=== PATIENT | female | born 1995 | race Caucasian/White ===

== ENCOUNTER → 2017-08-17 12:31 | Outpatient (CLI) | payer BC, SELFPAY ==
--- NOTE | 2017-08-17 12:41 | US_ITS ---
US transvaginal HISTORY: Pelvic pressure ITS.REASON: URINARY FREQUENCY, MICRO HEMATURIA ORDERING PHYSICIAN: Tristen Forrseter MD PATIENT AGE: 22 years COMPARISON: None FINDINGS: UTERUS: The uterus is 7.6 x 4 x 4.8 cm with a combined and medial thickness of 14 mm. The uterus is retroverted. No obvious uterine mass. The right ovary is 3.5 x 2.7 cm and contains multiple small follicles as well as a 16 x 13 mm cyst. The left ovary is 3 x 1.3 cm and contains multiple small follicles. Small amount fluid is present in the cul-de-sac. IMPRESSION: 1. Thickened endometrium in a retroverted uterus. 2. 16 mm right ovarian cyst with a small amount fluid in the cul-de-sac
== END ==
PROVIDERS: Family Provider Family Medicine; PCP Family Medicine; Visit Provider Family Medicine
DX: R35.0 Frequency of micturition (principal); R31.29 Other microscopic hematuria
CPT/HCPCS: 76830

== ENCOUNTER → 2018-07-20 13:24 | Outpatient (CLI) | payer BC, SELFPAY ==
[2018-07-20 15:13] LABS: HCG,Quantitative 0 mIU/mL
== END ==
PROVIDERS: Visit Provider Urology
DX: R11.0 Nausea (principal)
CPT/HCPCS: 36415; 84702

== ENCOUNTER → 2018-09-12 15:58 | Outpatient (CLI) | payer SELFPAY ==
[2018-09-12 15:59] LABS: Microscopic, Urine URINE MICROSCOPIC (MICROSCOPIC)
[2018-09-12 16:52] LABS: Appearance,Urine SL CLOUDY (Clear); Bilirubin,Urine Negative (Negative); Blood, Urine 1+ (Negative); Color,Urine YELLOW (Yellow); Glucose,Urine (UA) Negative (Negative); Ketones,Urine Negative (Negative); Leukocyte Esterase,Urine TRACE (Negative); Nitrate,Urine Negative (Negative); Protein,Urine 2+ (Negative); Specific Gravity, Urine >= 1.030 (1.005-1.030); Urobilinogen,Urine 0.2 EU/dl (0.2)
[2018-09-12 18:12] LABS: Bacteria,Urine 4+ /lpf; Calcium Oxalate Crystals,Urine Trace /lpf; RBC,Urine Occasional #/hpf (0-3)
== END ==
PROVIDERS: Visit Provider Urology
DX: M54.9 Dorsalgia, unspecified (principal); R35.0 Frequency of micturition
CPT/HCPCS: 81001; 87086

== ENCOUNTER → 2018-11-02 07:58 | Outpatient (CLI) | payer OTHER, SELFPAY ==
--- NOTE | 2018-11-02 08:05 | US_ITS ---
US thyroid HISTORY: Abnormal thyroid function test ITS.REASON: hypothyoid ORDERING PHYSICIAN: Shahana Pike APRN PATIENT AGE: 23 years Comparison: None FINDINGS: Right lobe: 4.2 x 1.5 x 1.4 cm. There is heterogeneous echogenicity but no distinct nodule Left lobe: 4.1 x 1.4 x 1.6 cm with heterogeneous echogenicity but no distinct nodule. Isthmus: This was is enlarged at 5 mm with heterogeneous echogenicity IMPRESSION: Thyroid gland upper limits of normal in size with heterogeneous echogenicity. No distinct nodule
[2018-11-02 09:04] LABS: Chol/HDL Ratio 4.9 (1-3.5); Cholesterol 339 mg/dL (140-200); HDL Cholesterol 69 mg/dL (29-89); LDL Cholesterol 254 mg/dL (0-130); Triglycerides 79 mg/dL (30-200); VLDL Cholesterol 16 mg/dL (0-40)
[2018-11-02 09:06] LABS: Thyroid Stimulating Hormone 128.41 uIU/ml (0.358-3.740)
== END ==
PROVIDERS: Visit Provider Nurse Practitioner Family
DX: E78.2 Mixed hyperlipidemia (principal); E03.9 Hypothyroidism, unspecified; R79.89 Other specified abnormal findings of blood chemistry
CPT/HCPCS: 36415; 76536; 80061; 84439; 84443

== ENCOUNTER → 2018-11-04 09:42 | Outpatient (CLI) | payer OTHER, SELFPAY ==
[2018-11-04 12:14] LABS: HCG,Quantitative 0 mIU/mL
== END ==
PROVIDERS: Visit Provider Urology
DX: Z32.00 Encounter for pregnancy test, result unknown (principal); R53.83 Other fatigue
CPT/HCPCS: 36415; 84702

== ENCOUNTER → 2018-11-18 11:29 | Outpatient (CLI) | payer OTHER, SELFPAY ==
[2018-11-18 13:01] LABS: HCG,Quantitative 1 mIU/mL
== END ==
PROVIDERS: Visit Provider Urology
DX: Z32.00 Encounter for pregnancy test, result unknown (principal)
CPT/HCPCS: 36415; 84702

== ENCOUNTER → 2018-12-28 08:18 | Outpatient (CLI) | payer OTHER, SELFPAY ==
[2018-12-28 10:01] LABS: Chol/HDL Ratio 3.2 (1-3.5); Cholesterol 162 mg/dL (140-200); Free T4 (Free Thyroxine) 0.83 ng/dl (0.76-1.46); Free Thyroxine Index 2.8 ug/dL (5.93-13.13); HDL Cholesterol 50 mg/dL (29-89); LDL Cholesterol 100 mg/dL (0-130); T4 (Thyroxine) 8.2 ug/dl (4.7-13.3); Thyroid Stimulating Hormone 13.28 uIU/ml (0.358-3.740); Triglycerides 59 mg/dL (30-200); Triiodothryronine (T3) Uptake 34 % (31-39); VLDL Cholesterol 12 mg/dL (0-40)
== END ==
PROVIDERS: Visit Provider Internal Medicine
DX: R79.89 Other specified abnormal findings of blood chemistry (principal)
CPT/HCPCS: 36415; 80061; 84436; 84439; 84443; 84479

== ENCOUNTER → 2019-01-19 12:47 | Outpatient (CLI) | payer OTHER, SELFPAY ==
[2019-01-19 13:44] LABS: HCG Qualitative, Serum Negative (Negative)
== END ==
PROVIDERS: Visit Provider Nurse Practitioner Family
DX: Z34.90 Encounter for supervision of normal pregnancy, unspecified, unspecified trimester (principal)
CPT/HCPCS: 36415; 84703

== ENCOUNTER → 2019-02-16 09:42 | Outpatient (CLI) | payer OTHER, SELFPAY ==
--- NOTE | 2019-02-16 09:47 | XR_ITS ---
PROCEDURE: XR KUB CLINICAL INDICATION: Kidney Stones COMPARISON: CT ABDOMEN PELVIS W CON from 02/02/2019 FINDINGS: Previously noted prominent stone in the right renal pelvis is no longer apparent. There is however ever, a column of fragmented stones in the distal right ureter. This column measures 19 mm on the left and 6 mm. There is a moderate amount of retained colonic feces IMPRESSION: Column of fragmented stones is present in the distal right ureter Dictated by: Fred Sandra MD 02/16/2019 10:19 Signed by: <Electronically signed by Fred Sandra MD in [place]> 02/16/2019 10:19
[2019-02-28 09:11] LABS: Ca oxalate dihydrate 65 % (.); Calcium phosphate 10 % (.)
[2019-02-28 10:32] LABS: Comment Note: (.); Specimen Type Comment: (.)
== END ==
PROVIDERS: PCP Family Medicine; Visit Provider Urology
DX: N20.1 Calculus of ureter (principal); N20.0 Calculus of kidney
CPT/HCPCS: 74018; 82370

== ENCOUNTER → 2019-02-23 08:26 | Outpatient (CLI) | payer OTHER, SELFPAY ==
--- NOTE | 2019-02-23 08:29 | XR_ITS ---
PROCEDURE: XR KUB CLINICAL INDICATION: Kidney Stones Follow-up kidney stones, ureteral stones COMPARISON: CT ABDOMEN PELVIS W CON from 02/02/2019 XR KUB from 02/16/2019 FINDINGS: There is a mild amount of retained colonic feces. Previously noted column of fragmented stones in the right distal ureter is no longer apparent. IMPRESSION: Negative KUB Dictated by: Fred Sandra MD 02/23/2019 08:49 Electronically signed by Fred Sandra MD in [place] 02/23/2019 08:49
== END ==
PROVIDERS: PCP Family Medicine; Visit Provider Urology
DX: N20.1 Calculus of ureter (principal)
CPT/HCPCS: 74018

== ENCOUNTER → 2019-04-14 15:55 | Outpatient (CLI) | payer OTHER, SELFPAY ==
[2019-04-14 17:22] LABS: Free T4 (Free Thyroxine) 1.04 ng/dl (0.76-1.46); Thyroid Stimulating Hormone 1.92 uIU/ml (0.358-3.740)
== END ==
PROVIDERS: Visit Provider Family Medicine
DX: E03.9 Hypothyroidism, unspecified (principal)
CPT/HCPCS: 36415; 84439; 84443

== ENCOUNTER → 2019-04-28 08:26 | Outpatient (CLI) | payer OTHER, SELFPAY ==
[2019-04-28 09:28] LABS: HCG,Quantitative 90 mIU/mL
== END ==
PROVIDERS: Visit Provider Urology
DX: Z34.90 Encounter for supervision of normal pregnancy, unspecified, unspecified trimester (principal)
CPT/HCPCS: 36415; 84702

== ENCOUNTER → 2019-05-08 08:27 | Outpatient (CLI) | payer OTHER, SELFPAY ==
[2019-05-08 10:22] LABS: HCG Qualitative, Serum Positive (Negative)
[2019-05-08 17:36] LABS: HCG,Quantitative 7916 mIU/mL
== END ==
PROVIDERS: Visit Provider Nurse Practitioner Psychiatric/Mental Health
DX: Z34.90 Encounter for supervision of normal pregnancy, unspecified, unspecified trimester (principal)
CPT/HCPCS: 36415; 84702; 84703

== ENCOUNTER → 2019-06-02 10:36 | Outpatient (CLI) | payer OTHER, SELFPAY ==
--- NOTE | 2019-06-02 10:37 | US_ITS ---
PROCEDURE: US OB TRANSVAGINAL CLINICAL INDICATION: US OB Dates The COMPARISON: TRANVAG US transvaginal from 08/17/2017 FINDINGS: An intrauterine gestational sac is present with a pole with a crown-rump length of 2.16 cm correlating to gestational age of 8.86 week. heart tones are present with an FHR of 176 bpm. Yolk sac is noted. IMPRESSION: Live intrauterine gestation at 8 weeks 6 days. Estimated due date by Ultrasound is 01/06/2020 Dictated by: Fred Sandra MD 06/02/2019 14:24 Electronically signed by Fred Sandra MD in [place] 06/02/2019 14:24
== END ==
PROVIDERS: PCP Family Medicine; Visit Provider Obstetrics & Gynecology
DX: O26.841 Uterine size-date discrepancy, first trimester (principal)
CPT/HCPCS: 76817

== ENCOUNTER → 2019-08-16 12:05 | Outpatient (CLI) | payer OTHER, SELFPAY ==
--- NOTE | 2019-08-16 12:08 | US_ITS ---
PROCEDURE: US OB /MATERNAL DETAIL CLINICAL INDICATION: US OB COMPLETE COMPARISON: US OB TRANSVAGINAL from 06/02/2019 FINDINGS: There is a single live fetus present which is in cephalic presentation. heart and body motion noted. The cervix is closed and measures 4 cm. Placenta is posterior and grade 1. Complete survey performed and was unremarkable on the submitted images as in PACS. No discrete anomalies identified on survey imaging by technologist. Active fetus. Three-vessel cord with satisfactory umbilical cord insertion. 4- chamber heart noted. Survey of brain & ventricles Unremarkable. Face and neck survey unremarkable. Diaphragm and chest views unremarkable. Abdomen: There is minimal ectasia both renal collecting systems measuring 5 mm and 4 mm. Stomach noted and satisfactory. Spine: Survey of the spine satisfactory with no anomalies identified nor imaged. Both arms and legs noted. Amniotic Fluid: Adequate. Maternal adnexa: No significant findings. Measurements: Average ultrasound age 19weeks 3days. Gestational Age 19 weeks 4 days Estimated due date by ultrasound age 0701/07/2020. Estimated weight 301g BPD = 19weeks 3days OFD = 19 weeks 6 days HC = 18weeks 6days AC = 19weeks 6days FL = 19weeks 4days Growth Percentile= 46% Heart Rate = 149bpm Cerebellum = 20weeks 3days Humerus = 19weeks 4days HC/AC is 1.11 CI is 0.78 FL/BPD is 0.69 FL/AC is 0.21 IMPRESSION: There is a single live fetus which is in cephalic presentation with an average ultrasound age of 19 weeks and 3 days. There is mild pyelectasis of questionable clinical significance. Follow-up is suggested. Study is otherwise unremarkable. Please see above for detail Dictated by: Fred Sandra MD 08/16/2019 17:30 Electronically signed by Fred Sandra MD in [place] 08/16/2019 17:30
== END ==
PROVIDERS: PCP Family Medicine; Visit Provider Obstetrics & Gynecology
DX: Z36.0 Encounter for antenatal screening for chromosomal anomalies (principal)
CPT/HCPCS: 76811

== ENCOUNTER → 2019-10-13 08:23 | Outpatient (CLI) | payer OTHER, SELFPAY ==
[2019-10-13 08:48] LABS: Basophils % 0.4 % (0.1-2.0); Eosinophils # 0.1 K/mm3 (0.0-0.4); Eosinophils % 1.5 % (0.1-12.0); Hemoglobin 10.2 g/dL (12.2-16.2); Lymphocytes # 2.4 K/mm3 (0.7-4.5); Lymphocytes % 26.1 % (10-50); Mean Corpuscular Hemoglobin 26.8 pg (27.0-31.2); Mean Corpuscular Volume 81.2 fl (81-99); Mean Platelet Volume 7.2 fl (7.4-10.4); Monocytes # 0.5 K/mm3 (0.1-1.0); Neutrophils # 6.2 K/mm3 (1.8-7.8); Neutrophils % 66.9 % (37.0-80.0); Platelet Count 282 K/mm3 (142-424); Red Blood Count 3.82 M/mm3 (4.20-5.40); Red Cell Distribution Width 13.1 % (11.5-17.5); White Blood Count 9.3 K/mm3 (4.8-10.8)
[2019-10-13 08:57] LABS: Glucose,Fasting 86 mg/dl (74-100)
[2019-10-13 10:25] LABS: Glucose 1 Hour 106 mg/dL (74-100)
[2019-10-13 10:55] LABS: Thyroid Stimulating Hormone 3.43 uIU/mL (0.465-4.68)
[2019-10-14 11:18] LABS: Hepatitis B Surface Antigen Negative (Negative); Hepatitis C Antibody <0.1 s/co ratio (0.0-0.9)
== END ==
PROVIDERS: Visit Provider Obstetrics & Gynecology
DX: Z34.90 Encounter for supervision of normal pregnancy, unspecified, unspecified trimester (principal); R09.89 Other specified symptoms and signs involving the circulatory and respiratory systems
CPT/HCPCS: 36415; 82951; 84443; 85025; 87340; 87380

== ENCOUNTER → 2019-10-16 14:35 | Outpatient (CLI) | payer OTHER, SELFPAY ==
--- NOTE | 2019-10-16 14:35 | US_ITS ---
PROCEDURE: US OB FOLLOW UP CLINICAL INDICATION: pyelectasis Follow-up pyelectasis COMPARISON: US OB /MATERNAL DETAIL from 08/16/2019 FINDINGS: Cervix is closed and measures 4 cm transabdominal. Single live fetus is present with average ultrasound age of 28 weeks and 2 days which is in breech presentation. heart and body motion noted. Following parameters are obtained BPD 28 weeks 1 day, OFD 28 weeks 4 days, HC 28 weeks 1 day, AC 28 weeks 1 day, FL 28 weeks 2 days. Heart tones are 134 beats per minute. Estimated weight is 1178 g which is 31 percentile. Bilateralpyelectasis once again noted at 4-5 mm not significantly changed. VANESSA is 11 cm which is a within normal limits. The placenta is posterior in implantation and grade 1.. IMPRESSION: Live IUP at 28 weeks 2 days in breech presentation. All parameters correlate. There remains mild pyelectasis not significantly changed. Amniotic fluid index is normal at 11 cm. Dictated by: Fred Sandra MD 10/16/2019 16:15 Electronically signed by Fred Sandra MD in [place] 10/16/2019 16:15
== END ==
PROVIDERS: PCP Family Medicine; Visit Provider Obstetrics & Gynecology
DX: Q62.0 Congenital hydronephrosis (principal)
CPT/HCPCS: 76816

== ENCOUNTER → 2019-11-30 13:20 | Outpatient (CLI) | payer OTHER, SELFPAY ==
--- NOTE | 2019-11-30 13:20 | US_ITS ---
PROCEDURE: US OB FOLLOW UP CLINICAL INDICATION: f/u pyelectasis COMPARISON: US OB FOLLOW UP from 10/16/2019 FINDINGS: There is a single live intrauterine gestation which is in cephalic presentation. heart body motion within FHR 125 beats per minute. The cervix is closed and measures 5 cm transabdominal. Placenta is posterior grade 1 without evidence of previa. Average ultrasound age is 34 weeks 2 days with an estimated weight of 2395 g which is 33 percentile. BPD 34 weeks 0 days, OFD 35 weeks 0 days, HC 34 weeks 1 day, AC 34 weeks 3 days, FL 34 weeks 3 days. VANESSA is normal at 13 cm. There remains mild right renal pyelectasis with the renal pelvis measuring 9 mm. The left kidney is not well demonstrated but there does not appear to be in the dilatation of the left renal collecting system. The fetus urinary bladder is slightly prominent. IMPRESSION: Right-sided pyelectasis at 9 mm. Follow-up recommended Live IUP at 34 weeks 2 days with an estimated weight of 2395 g which is 33rd percentile Dictated by: Fred Sandra MD 11/30/2019 16:50 Electronically signed by Fred Sandra MD in [place] 11/30/2019 16:50
== END ==
PROVIDERS: PCP Family Medicine; Visit Provider Obstetrics & Gynecology
DX: Z34.90 Encounter for supervision of normal pregnancy, unspecified, unspecified trimester (principal)
CPT/HCPCS: 76816

== ENCOUNTER → 2019-12-11 16:34 | Outpatient (CLI) | payer OTHER, SELFPAY | PROVIDERS: Visit Provider Obstetrics & Gynecology | DX: Z34.90 Encounter for supervision of normal pregnancy, unspecified, unspecified trimester (principal) | CPT/HCPCS: 86403 ==

== ENCOUNTER 2020-01-01 05:08 | Inpatient (IN) | payer OTHER, SELFPAY ==
[2020-01-01 05:10] VITALS: BMI 35.9
[2020-01-01 05:40] LABS: Microscopic, Urine URINE MICROSCOPIC (MICROSCOPIC)
[2020-01-01 06:07] LABS: Appearance,Urine CLEAR (Clear); Bilirubin,Urine Negative (Negative); Blood, Urine Negative (Negative); Color,Urine YELLOW (Yellow); Glucose,Urine (UA) Negative (Negative); Ketones,Urine Negative (Negative); Leukocyte Esterase,Urine 2+ (Negative); Nitrate,Urine Negative (Negative); Protein,Urine Negative (Negative); Urobilinogen,Urine 0.2 EU/dl (0.2)
[2020-01-01 06:08] LABS: Basophils % 0.4 % (0.1-2.0); Eosinophils # 0.1 K/mm3 (0.0-0.4); Eosinophils % 0.6 % (0.1-12.0); Lymphocytes # 3.3 K/mm3 (0.7-4.5); Lymphocytes % 28.2 % (10-50); Mean Corpuscular HGB Conc 32.6 g/dL (31.8-35.4); Mean Corpuscular Hemoglobin 23.2 pg (27.0-31.2); Mean Corpuscular Volume 71.2 fl (81-99); Mean Platelet Volume 7.9 fl (7.4-10.4); Monocytes # 0.6 K/mm3 (0.1-1.0); Monocytes % 5.1 % (1.7-9.3); Neutrophils # 7.7 K/mm3 (1.8-7.8); Neutrophils % 65.7 % (37.0-80.0); Platelet Count 287 K/mm3 (142-424); Red Blood Count 3.85 M/mm3 (4.20-5.40); Red Cell Distribution Width 14.6 % (11.5-17.5); White Blood Count 11.8 K/mm3 (4.8-10.8)
[2020-01-01 06:12] LABS: Hematocrit 27.4 % (37.0-47.0); Hemoglobin 8.9 g/dL (12.2-16.2)
[2020-01-01 06:21] LABS: Barbiturates Screen,Urine Negative ng/ml (<200)
[2020-01-01 06:22] LABS: Benzodiazepines Screen,Urine Negative ng/ml (<200)
[2020-01-01 06:23] LABS: Amphetamine/Metha Screen,Urine Negative ng/ml (<1000); Methadone Screen,Urine Negative ng/ml (<300)
[2020-01-01 06:24] LABS: Cannabinoid Screen,Urine Negative ng/ml (<50); Cocaine Screen,Urine Negative ng/ml (<300)
[2020-01-01 06:26] LABS: Opiate Screen,Urine Negative ng/ml (<300); Phencyclidine Screen,Urine Negative ng/ml (<25)
[2020-01-01 06:36] LABS: Amorphous Sediment,Urine Trace /lpf; Bacteria,Urine 2+ /lpf
[2020-01-01 06:56] LABS: Coronavirus 19 IgG Antibody Negative (Negative); Coronavirus 19 IgM Antibody Negative (Negative)
[2020-01-01 07:13] VITALS: BP 148/95; PULSE 101; RESP 18; TEMP 36.6; O2SAT 98; BMI 35.9
[2020-01-01 07:24] VITALS: BP 129/76; PULSE 100; RESP 18; TEMP 36.8; O2SAT 100
--- NOTE | 2020-01-01 09:54 | HMH.PHAINT ---
MED REC-PATIENT INDICATED SHE CAN'T REMEMBER TO TAKE HER ZOLOFT. HAS NOT HAD IN AT LEAST A MONTH.
--- NOTE | 2020-01-01 10:55 | HMH.LABNOT ---
Labor Note - Subjective: Date: 01/01/20 Time: 10:55 Comment:: Irregular contractions NST reassuring AROM with clear fluid IUPC placed without difficulty or complication - Objective: NST:: Reactive Cervical Dilation:: 3 Effacement:: 70% Station: -1 Membranes: artificially ruptured - Fetus: Monitoring?: Yes monitoring type:: External - Assessment: Patient Problems: All Active Problems 39 weeks gestation of (Acute) Anemia affecting (Acute) Congenital hydronephrosis (Acute) pyelectasis (Acute) Depression (Acute) Hypothyroidism (Acute) (Acute) Right ureteral calculus (Acute) - Plan: Comment:: Continue pitocin augmentation Continuous monitoring Anticipate
[2020-01-01 12:10] VITALS: BP 130/84; PULSE 93; RESP 18; TEMP 36.5; O2SAT 99
--- NOTE | 2020-01-01 13:27 | P.PN_ITS ---
[facility] Anesthesia Checklist - Patient Identification Patient Identification: Arm Band, Verbal (Name & ) - Structural Data Admitted From: Inpatient Planned Operative Procedure/s: labor epidural Consent for Planned Operative Procedure(s) Verified: Yes Verified Documents: History and Physical - NPO Status Verified Time NPO: 00:00 - Chart Verification Results Verified: CBC, BMP - Additional verifications Patient : Yes Anesthesia Reactions: No Hx Blood Transfusions: No Blood Transfusion Reaction: No Cephalosporin Allergy: No Previous Colonoscopy: No - Cardiovascular Assessment Heart Sounds: S1 & S2 Pulse Strength: Baseline Pulse Rhythm: Regular Peripheral Edema: Yes - Airway Assessment C-Spine Mobility Assessed: No TMJ Mobility Assessed: No Dentition: Good Dentition - Neurological Assessment Level of Consciousness: Awake, Alert, Appropriate Hx Seizures: No Numbness or tingling in extremities: No - Anesthesia Plan Anesthesia Risk discussed: Yes Anesthesia Plan: Verified ASA Class: II Anesthesia Type: Epidural [facility] History I have reviewed the patient's past medical history: Yes *Have you ever received a pneumonia vaccine?: No *Have you received a flu vaccine this season?: Yes Anesthesia experience/problems:: none Laterality Cases: Bilateral: Tonsillectomy Other Surgeries: No: Amputation: No Fractures: No - *Social History Smoking Status: Never smoker Alcohol Intake: current Alcohol Intake Frequency:: holidays/special occasions only Substance Use Type: denies use *Occupational Status:: employed *Travel in the last 8 weeks: None Family Hx:: Cancer, Hyperlipidemia, Diabetes, Stroke, Thyroid Disorder Para: 1
--- NOTE | 2020-01-01 16:14 | HMH.DN ---
- Delivery Note Delivery Date:: 01/01/20 Delivery Time:: 15:58 Anesthesia Type: Epidural Was labor medically induced?: Yes Induction method: per pitocin protocol Gestational age (weeks): 39 delivered prior to 39 weeks?: No Gender: Male at 1 minute: 8 at 5 minutes: 9 Delivery Procedure:: Spontaneous vaginal delivery of liveborn male infant over intact perineum. Delivery uncomplicated Nuchal cord x1 reduced on perineum; no shoulder dystocia with delivery Infant placed in JOSE with mother immediately after umbilical cord clamped/cut, with standard nursing assessment performed Infant Apgars: 8 & 9 Placenta spontaneously expressed and examined; noted to be complete/intact. Vulva, vagina, and cervix inspected; no lacerations present EBL: 300 cc All sponge/needle/instrument counts correct at conclusion of procedure Disposition: Mom/baby stable to recovery in LDRP Placental Delivery Description: Spontaneous
[2020-01-01 16:21] VITALS: BP 136/61; PULSE 93; RESP 16; TEMP 36.4
[2020-01-01 20:52] VITALS: BP 138/78; PULSE 90; RESP 18; TEMP 36.6; O2SAT 99
[2020-01-02] VITALS (21 sets, daily range): BP systolic 122–135; BP diastolic 72–90; PULSE 77–98; RESP 16–18; TEMP 36.3–36.8; O2SAT 95–99
[2020-01-02 06:49] LABS: Hematocrit 21.9 % (37.0-47.0)
[2020-01-02 14:17] LABS: Hematocrit 29.2 % (37.0-47.0)
--- NOTE | 2020-01-02 17:35 | HMH.ACPN2 ---
Internal Medicine - PN: Subj *Date: 01/02/20 *Time: 10:35 Interval history: PPD #1 No unusual complaints Yedxr-sy-locwgee anemia Admitting Hgb 8.9 and PPD #1 Hgb 7.0 Lochia has been appropriate with no excessive bleeding Asymptomatic with anemia Exam Vital signs and Labs for Last 24 Hours: Temp Pulse Resp BP Pulse Ox 97.4 F L 84 16 126/72 97 01/02/20 16:30 01/02/20 16:30 01/02/20 16:30 01/02/20 16:30 01/02/20 16:30 Laboratory Results - last 24 hr 01/01/20 05:30: Blood Type A Positive, Antibody Screen Negative, Crossmatch (AHG) See Detail 01/02/20 06:13: Hgb 7.0 L*, Hct 21.9 L* 01/02/20 07:50: Blood Type Confirm A Positive 01/02/20 13:41: Hgb 10.0 L D, Hct 29.2 L I & O for Last 24 hours: Intake & Output 12/31/19 01/01/20 01/02/20 01/03/20 11:59 11:59 11:59 11:59 Intake Total 0 / 0 0 / 0 Balance 0 / 0 0 / 0 Weight 190 lb Microbiology Reports for the Last 24 Hours: Microbiology 01/01/20 05:15 Urine,Clean Catch Urine Culture - Preliminary NO GROWTH AFTER 24 HOURS Narrative: CONSTITUTIONAL: no acute distress HEENT: mucous membranes moist PULMONARY: breathing unlabored without audible wheezes CV: no tachycardia or visible JVD; normal LE peripheral pulses ABD: soft, NT/ND, no guarding : fundus firm at/below umbilicus SKIN: no visible rash or lesions EXT: 1+ edema LEs NEURO: alert/oriented, no altered mental status PSYCH: appropriate mood and demeanor without visible anxiety/depression Assessment and Plan (1) Acute blood loss anemia Current visit: Yes Status: Acute Category: Medical Code(s): D62 - Acute posthemorrhagic anemia (2) Anemia affecting Current visit: Yes Status: Acute Category: Medical Code(s): O99.019 - Anemia complicating , unspecified trimester - Assessment and plan all Dx Assessment and Plan for all problems:: Transfusion 2 units red cells post-transfusion hgb anticipate discharge home tomorrow
[2020-01-03 04:24] VITALS: BP 135/82; PULSE 76; RESP 18; TEMP 37.2; O2SAT 96
[2020-01-03 07:11] LABS: Hematocrit 29.1 % (37.0-47.0); Hemoglobin 9.8 g/dL (12.2-16.2)
[2020-01-03 09:20] VITALS: BP 138/88; PULSE 87; RESP 18; TEMP 36.5; O2SAT 97
--- NOTE | 2020-01-03 11:05 | P.DS_ITS ---
General - General Admission date:: 01/01/20 Discharge date: 01/03/20 Hospital Course Hospital Course: IOL at 39 wks Normal without complication Chronic anemia with small EBL during delivery, but Hgb PPD #1 7.0 Transfused 2 units of packed red cells with post-transfusion hgb 10.0 Discharged home on PPD #2 in stable condition Rhogam Administration: Not Indicated Objective Vital signs: Temp Pulse Resp BP Pulse Ox 97.7 F 87 18 138/88 97 01/03/20 09:20 01/03/20 09:20 01/03/20 09:20 01/03/20 09:20 01/03/20 09:20 Narrative: CONSTITUTIONAL: no acute distress HEENT: mucous membranes moist PULMONARY: breathing unlabored without audible wheezes CV: no tachycardia or visible JVD; normal LE peripheral pulses ABD: soft, NT/ND, no guarding : fundus firm at/below umbilicus SKIN: no visible rash or lesions EXT: 1+ edema LEs NEURO: alert/oriented, no altered mental status PSYCH: appropriate mood and demeanor without visible anxiety/depression Results Labs on day of discharge: Labs from last 24 hours 01/03/20 01/02/20 01/01/20 06:50 13:41 05:30 Hgb 9.8 L 10.0 L D Hct 29.1 L 29.2 L Crossmatch (AHG) See Detail DS: Diagnosis - Discharge Diagnosis (1) Acute blood loss anemia Status: Acute (2) Anemia affecting Status: Acute (3) Normal vaginal delivery Status: Acute Discharge Plan - Patient Discharge Instructions ACTIVITY: Continue current activity DIET: regular diet Additional Instructions: no heavy lifting, no strenuous activity, nothing in the vagina for 6 weeks. Patient Instructions: Depression, Hemorrhage, DI for Labor and Delivery, Vaginal , DI for Pre-eclampsia, Preventing the Spread of Coronavirus Discharge Instructions - Follow up Plan Follow up with: Lis Hayes MD [Staff Physician] - Disposition: Home, Self-Nursing Home Medications: Home Medications Medication Instructions Recorded Confirmed Type Levothyroxine Sodium 100 mcg PO DAILY 02/02/19 01/01/20 History [Levothyroxine 100mcg (0.1MG) Tab] prenat.vits,rita,mfa-audj-drcqt 1 tab PO DAILY 06/07/19 01/01/20 History Sertraline HCl [Zoloft] 50 mg PO DAILY 01/01/20 01/01/20 History Prescriptions/Medication Reconciliation: New Acetaminophen [Acetaminophen 325mg tab] 650 mg PO Q4HP PRN tablet PRN Reason: Mild Pain Ibuprofen [Motrin 400mg tablet] 800 mg PO Q6HP PRN tablet PRN Reason: Mild To Moderate Pain Sertraline HCl [Zoloft 50mg tablet] 50 mg PO DAILY tablet Levothyroxine Sodium [Synthroid 100mcg (0.1mg) tablet] 100 mcg PO DAILY tablet Continued prenat.vits,rita,qdg-axnu-vbcnj 1 tab PO DAILY Levothyroxine Sodium [Levothyroxine 100mcg (0.1MG) Tab] 100 mcg PO DAILY Sertraline HCl [Zoloft] 50 mg PO DAILY - Problem Reconciliation Problems Reviewed?: Yes
== END 2020-01-03 12:00 | disposition home or self-care (01) | DRG 807 ==
PROVIDERS: Admitting Provider Obstetrics & Gynecology; PCP Family Medicine; Visit Provider Obstetrics & Gynecology
DX: O69.81X0 Labor and delivery complicated by cord around neck, without compression, not applicable or unspecified (principal); Z37.0 Single live birth; Z3A.39 39 weeks gestation of pregnancy; O99.03 Anemia complicating the puerperium
CPT/HCPCS: 59409; 36415; 59025; 80305; 81001; 85014; 85018; 85025; 86328; 86850; 87086; 94761; C1758; P9016

== ENCOUNTER → 2020-04-22 08:40 | Outpatient (CLI) | payer OTHER, SELFPAY ==
[2020-04-22 09:29] LABS: HCG,Quantitative < 2 mIU/ml (0-5.42)
== END ==
PROVIDERS: Visit Provider Obstetrics & Gynecology
DX: Z30.9 Encounter for contraceptive management, unspecified (principal)
CPT/HCPCS: 36415; 84702

== ENCOUNTER → 2020-07-26 07:53 | Outpatient (CLI) | payer OTHER, SELFPAY ==
--- NOTE | 2020-07-26 07:53 | US_ITS ---
PROCEDURE: US TRANSVAGINAL CLINICAL INDICATION: US- IUD placement COMPARISON: US US OB TRANSVAGINAL from 06/02/2019 FINDINGS: UTERUS: 7cm x 6cmx 4cm with a combined endometrial thickness of 3.9mm LEFT OVARY: 7kto7pej2.5cm with a volume of 6.7ml. RIGHT OVARY: [id number] with a volume of 7.2ml. The uterus is retroverted. There is an IUD in place in satisfactory position. Small bilateral ovarian follicles are noted. No cul-de-sac fluid. No dominant adnexal mass. IMPRESSION: Retroverted uterus with IUD in place. Dictated by: Fred Sandra MD 07/26/2020 17:12 Fred Sandra MD in [place] 07/26/2020 17:12
== END ==
PROVIDERS: PCP Family Medicine; Visit Provider Obstetrics & Gynecology
DX: Z97.5 Presence of (intrauterine) contraceptive device (principal)
CPT/HCPCS: 76830

== ENCOUNTER → 2020-08-16 15:02 | Outpatient (CLI) | payer OTHER, SELFPAY ==
--- NOTE | 2020-08-16 15:05 | XR_ITS ---
PROCEDURE: XR KNEE RT 4V CLINICAL INDICATION: right knee pain; weightbearing COMPARISON: No exams were available for comparison FINDINGS: No fracture or dislocation. No lytic or blastic change. There is normal mineralization. The joint spaces are well-preserved. No significant degenerative/arthritic changes. No erosive changes evident. Other findings:None. IMPRESSION: No acute findings. Dictated by: Fred Sandra MD 08/16/2020 15:49 Fred Sandra MD in [place] 08/16/2020 15:49
== END ==
PROVIDERS: PCP Internal Medicine Adolescent Medicine; Visit Provider Orthopaedic Surgery
DX: M25.561 Pain in right knee (principal)
CPT/HCPCS: 73564

== ENCOUNTER → 2022-12-21 08:42 | Outpatient (CLI) | payer BC, SELFPAY ==
[2022-12-21 10:09] LABS: HCG,Quantitative < 2 mIU/ml (0-5.42)
== END ==
PROVIDERS: PCP Internal Medicine Adolescent Medicine; Visit Provider Nurse Practitioner Family
DX: N92.6 Irregular menstruation, unspecified (principal)
CPT/HCPCS: 36415; 84702

== ENCOUNTER → 2023-03-24 13:29 | Outpatient (CLI) | payer BC, SELFPAY | LOC: LAB 08-16 13:31 | PROVIDERS: PCP Nurse Practitioner Family; Visit Provider Nurse Practitioner Family | DX: R53.83 Other fatigue; Z83.3 Family history of diabetes mellitus; E66.9 Obesity, unspecified; Z68.34 Body mass index [BMI] 34.0-34.9, adult; Z79.899 Other long term (current) drug therapy ==

== ENCOUNTER 2023-11-08 17:07 | Emergency (ER) | payer BC, SELFPAY ==
[2023-11-08 17:45] VITALS: BP 134/84; PULSE 78; RESP 20; TEMP 36.8; O2SAT 100; BMI 37.8
[2023-11-08 18:19] LABS: UTC Pregnancy Test, Urine Negative (Negative)
--- NOTE | 2023-11-08 18:19 | EXP.UTC ---
Discharge Plan Disposition Patient Disposition: Home, Self-Care Condition: Good Prescriptions Prescriptions: No Action aripiprazole [Abilify] 5 mg tablet 5 mg PO QHS Qty: 30 0RF sertraline 50 mg tablet 50 mg PO DAILY Qty: 30 0RF levothyroxine 100 mcg tablet See Rx Instructions .ROUTE .COMPLEX Qty: 30 5RF Dose Instruction: TAKE ONE TABLET BY MOUTH EVERY DAY Rx Instructions: TAKE ONE TABLET BY MOUTH EVERY DAY bupropion HCl 150 mg tablet extended release 24 hr 150 mg PO DAILY Patient Comments: TAKE 1 TABLET BY MOUTH EACH MORNING Referrals Follow up/Referrals: Bere Mcghee APRN [Primary Care Provider] - See instructions Activity Restrictions/Add. Instructions Additional Instructions/Restrictions: GO home and lay down and sleep off remainder of migraine headache Follow up with your Family Doctor if you continue to have headaches to maybe discuss preventative medications to keep them under control Straight to ER if worse headache of your life Clinical Impressions Clinical Impression: Migraine Qualifiers: Migraine type: unspecified Status migrainosus presence: without status migrainosus Intractability: not intractable Qualified Code(s): G43.909 - Migraine, unspecified, not intractable, without status migrainosus Instructions Patient Instructions: Migraine -- Adult, DI for Migraine Discharge ED Provider: Zoya Hall [facility] General Stated complaint: Migraine Mode of Arrival: Ambulatory Source of Information: Patient Limitations: No Limitations Time Seen by Provider: 11/08/23 18:19 Description of Symptoms (Recalled from Triage Doc. by RN): PATIENT C/O MIGRAINE SINCE YESTERDAY MORNING HEENT Symptoms (Recalled from RN notes): Yes Resp Symptoms (Recalled from RN notes): No Skin Symptoms (Recalled from RN notes): No MS Symptoms (Recalled from RN notes): No Functional Status (Recalled from RN notes): WNL History of Present Illness Provider Complaint: Patient states she has a hx of migraine headaches and she hasnt had one in awhile but yesterday she started with headache and has take OTC pain medications but none has helped so today she came in to get something to help ease the headache Denies worse headache of her life Related Data Home Medications Medication Instructions Recorded Confirmed bupropion HCl 150 mg 24 hr tablet, 150 mg PO DAILY 11/08/23 11/08/23 extended release Previous Rx's Medication Instructions Recorded aripiprazole 5 mg tablet (Abilify) 5 mg PO QHS #30 tabs 08/30/20 sertraline 50 mg tablet 50 mg PO DAILY #30 tabs 08/30/20 levothyroxine 100 mcg tablet See Rx Instructions .Route 01/23/21 .COMPLEX #30 tabs Allergies Allergy/AdvReac Type Severity Reaction Status Date / Time No Known Allergies Allergy Verified 03/10/23 13:14 Worker's Comp Is this a Worker's Comp case?: No PFSH PFS Disclaimer: The information contained in this section may have been updated after the patient was seen, as this information can be updated by other users. 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 (Updated 11/08/23 @ 18:32 by Zoya Hall APRN) Urinary tract infection Thyroid disease Depression Anxiety Migraine Kidney stone Surgical History History of ureteroscopy Hx of tonsillectomy Family History Mother Cancer Cervical Social History Smoking Status: Never smoker alcohol intake: current alcohol intake frequency: holidays/special occasions only substance use type: denies use current occupational status: employed Travel in the last 8 weeks: None number of children: 1 ROS Obtained: Yes All systems reviewed & no additional complaints except as documented and Yes Systems reviewed as appropriate & no additional complaints except as documented Constitutional Constitutional: Reports system reviewed and no additional complaints, except as documented, Reports as per HPI and Reports headache(s) Eyes Eyes: Reports system reviewed and no additional complaints, except as documented, Reports as per HPI, Denies blurry vision, Denies change in vision and Denies loss of vision ENT Ears, Nose, Mouth, and Throat: Reports system reviewed and no additional complaints, except as documented, Reports as per HPI and Reports headache(s) Cardiovascular Cardiovascular: Reports system reviewed and no additional complaints, except as documented and Reports as per HPI Respiratory Respiratory: Reports system reviewed and no additional complaints, except as documented and Reports as per HPI Gastrointestinal Gastrointestingal: Reports system reviewed and no additional complaints, except as documented and as per HPI Musculoskeletal Musculoskeletal: Reports system reviewed and no additional complaints, except as documented and Reports as per HPI Neurologic Neurologic: Reports headache(s) and Denies loss of vision Physical Exam General General appearance: alert and in no apparent distress Eye Eye exam: Present normal appearance, PERRL and EOMI ENT ENT exam: Present normal exam, normal oropharynx and mucous membranes moist Respiratory Respiratory exam: Present normal lung sounds bilaterally; Absent respiratory distress or wheezes Cardiovascular Cardiovascular exam: Present regular rate, normal rhythm and normal heart sounds Neurological Exam Neurological exam: Present alert, oriented X3 and normal gait Medical Decision Making Zoran Inquiry Pt receiving controlled substance: No Zoran was queried for this patient: No Vital Signs: 11/08/23 17:45 Temperature 98.3 F Temperature Source Oral Pulse Rate [Left Brachial] 78 Respiratory Rate 20 Blood Pressure [Left Arm] 134/84 Blood Pressure Mean [Left Arm] 100 Blood Pressure Source [Left Arm] Automatic Cuff Blood Pressure Position [Left Arm] Sitting 02 Sat by Pulse Oximetry 100 Oxygen Delivery Method Room Air Lab Data Lab results reviewed: Yes I reviewed the patient's lab results.
[2023-11-08] MEDS: diphenhydrAMINE 50MG/ML VIAL 25 MG IM (18:37)
[2023-11-08] MEDS: ONDANSETRON 4MG ODT 4 MG SL (18:37)
[2023-11-08] MEDS: KETOROLAC 60MG/2ML VIAL 60 MG IM (18:37)
[2023-11-08 18:38] VITALS: BP 134/84; PULSE 78; RESP 20; TEMP 36.8; O2SAT 100
== END 2023-11-08 18:55 | disposition home or self-care (01) ==
PROVIDERS: Emergency Provider Nurse Practitioner; PCP Nurse Practitioner Family
DX: G43.909 Migraine, unspecified, not intractable, without status migrainosus (principal)
CPT/HCPCS: 81025; 96372; 99204; 99212; G0463

== ENCOUNTER 2024-01-08 15:37 | Emergency (ER) | payer BC, SELFPAY ==
--- NOTE | 2024-01-08 15:43 | XR_ITS ---
PROCEDURE INFORMATION: Exam: XR Right Ankle Exam date and time: 01/08/2024 4:49 PM Age: 28 years old Clinical indication: Pain; Ankle; Right; Additional info: Pain x 1 day, ankle gave out TECHNIQUE: Imaging protocol: Radiologic exam of the right ankle. Views: 3 or more views. COMPARISON: CR XR KNEE RT 4V 08/16/2020 3:30 PM FINDINGS: Bones/joints: No acute fracture or malalignment. Soft tissues: Mild lateral ankle soft tissue swelling. IMPRESSION: 1. No acute osseous findings. 2. Mild lateral ankle soft tissue swelling.
--- NOTE | 2024-01-08 15:44 | XR_ITS ---
PROCEDURE INFORMATION: Exam: XR Right Foot Exam date and time: 01/08/2024 4:53 PM Age: 28 years old Clinical indication: Pain; Ankle; Right; Additional info: Pain x 1 day. Ankle gave out TECHNIQUE: Imaging protocol: Radiologic exam of the right foot. Views: 3 or more views. COMPARISON: CR XR ANKLE RT MIN 3V 01/08/2024 4:49 PM FINDINGS: Bones/joints: No acute fracture or malalignment. Soft tissues: Normal. IMPRESSION: No acute osseous findings.
[2024-01-08 15:50] VITALS: BP 120/85; PULSE 77; RESP 18; TEMP 36.7; O2SAT 98; BMI 37.8
--- NOTE | 2024-01-08 16:03 | ED_ITS ---
Discharge Plan Disposition Patient Disposition: Home, Self-Care Condition: Good Prescriptions Prescriptions: No Action aripiprazole [Abilify] 5 mg tablet 5 mg PO QHS Qty: 30 0RF sertraline 50 mg tablet 50 mg PO DAILY Qty: 30 0RF levothyroxine 100 mcg tablet See Rx Instructions .ROUTE .COMPLEX Qty: 30 5RF Dose Instruction: TAKE ONE TABLET BY MOUTH EVERY DAY Rx Instructions: TAKE ONE TABLET BY MOUTH EVERY DAY bupropion HCl 150 mg tablet extended release 24 hr 150 mg PO DAILY Patient Comments: TAKE 1 TABLET BY MOUTH EACH MORNING Referrals Follow up/Referrals: Bere Mcghee APRN [Primary Care Provider] - See instructions Activity Restrictions/Add. Instructions Additional Instructions/Restrictions: Weightbearing as tolerated rest Ice with cold pack for 20 minutes remove may repeat for comfort every hour Connor wrap for support and swelling no less in the shower. Be sure not too tight but not to lose either Elevate with ankle above your heart as much as possible to help reduce swelling and therefore pain Ibuprofen every 6 hours as needed for pain or inflammation. If needs something more you can take Tylenol every 4 hours as needed as long as her primary care has told he was okayed for you to take both. Follow-up immediately if new or worsening symptoms or no noticeable improvement over the next 3-5 days. call ortho if no improvement Clinical Impressions Clinical Impression: Right ankle sprain Qualifiers: Encounter type: initial encounter Involved ligament of ankle: unspecified ligament Qualified Code(s): S93.401A - Sprain of unspecified ligament of right ankle, initial encounter Instructions Patient Instructions: DI for Ankle Sprain Discharge ED Provider: Pérez ([facility] [facility] [place] General Stated complaint: AO 01/08/24 1430 Injury right ankle Mode of Arrival: Ambulatory Source of Information: Patient Limitations: No Limitations Time Seen by Provider: 01/08/24 16:03 Description of Symptoms (Recalled from Triage Doc. by RN): PATIENT C/O PAIN TO RIGHT FOOT AND ANKLE. SHE STATES SHE STEPPED OFF OF A DECK TODAY AND FELT A POP HEENT Symptoms (Recalled from RN notes): No Resp Symptoms (Recalled from RN notes): No Skin Symptoms (Recalled from RN notes): No MS Symptoms (Recalled from RN notes): Yes Functional Status (Recalled from RN notes): WNL History of Present Illness Provider Complaint: 28 yr old female presents for rt ankle pain. pt states she stepped off the deck and her ankle rolled and she felt a pop Related Data Home Medications Medication Instructions Recorded Confirmed bupropion HCl 150 mg 24 hr tablet, 150 mg PO DAILY 11/08/23 11/08/23 extended release Previous Rx's Medication Instructions Recorded aripiprazole 5 mg tablet (Abilify) 5 mg PO QHS #30 tabs 08/30/20 sertraline 50 mg tablet 50 mg PO DAILY #30 tabs 08/30/20 levothyroxine 100 mcg tablet See Rx Instructions .Route 01/23/21 .COMPLEX #30 tabs Allergies Allergy/AdvReac Type Severity Reaction Status Date / Time No Known Allergies Allergy Verified 03/10/23 13:14 Worker's Comp Is this a Worker's Comp case?: No [facility] Disclaimer: The information contained in this section may have been updated after the patient was seen, as this information can be updated by other users. 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) Smoking Status: Never smoker alcohol intake: current alcohol intake frequency: holidays/special occasions only substance use type: denies use current occupational status: employed Travel in the last 8 weeks: None number of children: 1 ROS Obtained: Yes All systems reviewed & no additional complaints except as documented Constitutional Constitutional: Reports system reviewed and no additional complaints, except as documented Eyes Eyes: Reports system reviewed and no additional complaints, except as documented ENT Ears, Nose, Mouth, and Throat: Reports system reviewed and no additional complaints, except as documented Cardiovascular Cardiovascular: Reports system reviewed and no additional complaints, except as documented Respiratory Respiratory: Reports system reviewed and no additional complaints, except as documented Gastrointestinal Gastrointestingal: Reports system reviewed and no additional complaints, except as documented Musculoskeletal Musculoskeletal: Reports system reviewed and no additional complaints, except as documented, Reports as per HPI, Reports arthralgias, Reports joint swelling and Reports limited range of motion Integumentary/Breasts Skin/Breast: Reports system reviewed and no additional complaints, except as documented Endocrine Endocrine: Reports system reviewed and no additional complaints, except as documented Hematologic/Lymphatic Henatologic/Lymphatic: Reports system reviewed and no additional complaints, except as documented Allergic/Immunologic Allergic/Immunologic: Reports system reviewed and no additional complaints, except as documented Physical Exam General General appearance: alert and in no apparent distress Head Head exam: atraumatic, normocephalic and normal inspection Neck Neck exam: Present normal inspection, full ROM and trachea midline; Absent meningismus or lymphadenopathy Respiratory Respiratory exam: Present normal lung sounds bilaterally; Absent respiratory distress Cardiovascular Cardiovascular exam: Present regular rate and normal rhythm; Absent JVD Extremities Exam Extremities exam: Present normal capillary refill; Absent calf tenderness Expanded Lower Extremity Exam Right: Ankle image: 2 1. swelling, tender Back Exam Back exam: Present normal inspection; Absent tenderness Neurological Exam Neurological exam: Present alert and oriented X3 Skin Skin exam: Present warm, dry, intact and normal color Lymphatic Lymphatic Findings: no adenopathy Medical Decision Making Medical Records Medical records reviewed: Yes I reviewed the patient's medical records. Zoran Inquiry Pt receiving controlled substance: No Zoran was queried for this patient: No Vital Signs: 01/08/24 15:50 Temperature 98.1 F Temperature Source Oral Pulse Rate [Right Brachial] 77 Respiratory Rate 18 Blood Pressure [Right Arm] 120/85 Blood Pressure Mean [Right Arm] 96 Blood Pressure Source [Right Arm] Automatic Cuff Blood Pressure Position [Right Arm] Sitting 02 Sat by Pulse Oximetry 98 Oxygen Delivery Method Room Air Orders (Tests/Meds): ORDERS Category Date Time Status Ankle XR -Right minimum 3 Views [XR ankle RT min 3V] Exams 01/08/24 15:43 Ordered Stat Foot XR right minimum 3 views [XR foot RT min 3V] Stat Exams 01/08/24 15:44 Ordered
[2024-01-08 17:40] VITALS: BP 120/85; PULSE 77; RESP 18; TEMP 36.7; O2SAT 98
== END 2024-01-08 17:44 | disposition home or self-care (01) ==
PROVIDERS: Emergency Provider Nurse Practitioner Family; PCP Nurse Practitioner Family
DX: S93.401A Sprain of unspecified ligament of right ankle, initial encounter (principal); M25.571 Pain in right ankle and joints of right foot; X50.0XXA Overexertion from strenuous movement or load, initial encounter
CPT/HCPCS: 73610; 73630; 99212; 99213; G0463

== ENCOUNTER 2024-02-06 21:21 | Emergency (ER) | payer BC, SELFPAY ==
--- NOTE | 2024-02-06 21:43 | HMH.EDGENADL ---
Discharge Plan Disposition Patient Disposition: Home, Self-Care Condition: Fair Prescriptions Prescriptions: New oxycodone 5 mg tablet 5 mg PO Q6H PRN (Reason: pain) Qty: 10 0RF tamsulosin 0.4 mg capsule 0.4 mg PO HS Qty: 10 0RF cefdinir 300 mg capsule 300 mg PO BID 10 Days Qty: 20 0RF ondansetron 4 mg tablet,disintegrating 4 mg PO Q6H PRN (Reason: nausea and vomiting) Qty: 14 0RF No Action aripiprazole [Abilify] 5 mg tablet 5 mg PO QHS Qty: 30 0RF sertraline 50 mg tablet 50 mg PO DAILY Qty: 30 0RF levothyroxine 100 mcg tablet See Rx Instructions .ROUTE .COMPLEX Qty: 30 5RF Dose Instruction: TAKE ONE TABLET BY MOUTH EVERY DAY Rx Instructions: TAKE ONE TABLET BY MOUTH EVERY DAY bupropion HCl 150 mg tablet extended release 24 hr 150 mg PO DAILY Patient Comments: TAKE 1 TABLET BY MOUTH EACH MORNING Referrals Follow up/Referrals: Bere Mcghee APRN [Primary Care Provider] - See instructions Activity Restrictions/Add. Instructions Additional Instructions/Restrictions: You were evaluated in the ER and are appropriate for discharge at this time. Take the prescribed antibiotics as directed, do not skip doses, do not stop taking them early. Take the ondansetron if needed for nausea and vomiting. Take the oxycodone if needed for severe pain. This medication can make you sleepy. Do not drive or operate machinery after taking it. It also causes constipation and can cause dependence so should only be used for breakthrough pain. Try taking Tylenol and ibuprofen to control pain before taking the oxycodone. Take the tamsulosin as directed. Follow-up with Dr. Mcdaniel in the office tomorrow as scheduled. Return to the ER with new, worsening, or otherwise concerning symptoms. Clinical Impressions Clinical Impression: Calculus of left ureter, Hydronephrosis of left kidney Print Language Print Language: Slovenian Discharge ED Provider: Angleo Solo General Adult HPI <ASA Rodas - Last Filed: 02/06/24 23:50> General Chief complaint: PAIN Stated complaint: lower back pain Time Seen by Provider: 02/06/24 21:43 History of Present Illness HPI narrative: Patient presents for evaluation of acute left flank and lower abdominal pain. Patient reports acute onset of left flank and abdominal pain that began today. It feels similar to a previous kidney stone that she has had previously. She denies dysuria fever chills hemoptysis hematochezia melena diarrhea but does have nausea and has vomited once. There is no position of comfort no aggravating or relieving factors. Related Data Home Medications ?Medication ?Instructions ?Recorded ?Confirmed bupropion HCl 150 mg 24 hr tablet, 150 mg PO DAILY 11/08/23 11/08/23 extended release Previous Rx's ?Medication ?Instructions ?Recorded aripiprazole 5 mg tablet (Abilify) 5 mg PO QHS #30 tabs 08/30/20 sertraline 50 mg tablet 50 mg PO DAILY #30 tabs 08/30/20 levothyroxine 100 mcg tablet See Rx Instructions .Route 01/23/21 .COMPLEX #30 tabs cefdinir 300 mg capsule 300 mg PO BID 10 days #20 caps 02/06/24 ondansetron 4 mg disintegrating 4 mg PO Q6H PRN nausea and 02/06/24 tablet vomiting #14 tabs oxycodone 5 mg tablet 5 mg PO Q6H PRN pain #10 tabs 02/06/24 tamsulosin 0.4 mg capsule 0.4 mg PO HS #10 caps 02/06/24 Allergies Allergy/AdvReac Type Severity Reaction Status Date / Time No Known Allergies Allergy Verified 03/10/23 13:14 [facility] <ASA Rodas - Last Filed: 02/06/24 23:50> [facility] Disclaimer: The information contained in this section may have been updated after the patient was seen, as this information can be updated by other users. 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) Smoking Status: Former smoker alcohol intake: current alcohol intake frequency: holidays/special occasions only substance use type: denies use current occupational status: employed Travel in the last 8 weeks: None number of children: 1 <ASA Rodas - Last Filed: 02/06/24 23:50> ROS Obtained: Yes Systems reviewed as appropriate & no additional complaints except as documented Physical Exam <ASA Rodas - Last Filed: 02/06/24 23:50> General General appearance: alert and in no apparent distress Respiratory Respiratory exam: Present normal lung sounds bilaterally Cardiovascular Cardiovascular exam: Present regular rate and normal rhythm Abdominal Exam Abdominal exam: Present soft, tenderness (Slightly tender to palpation in the left upper quadrant along with left CVA tenderness to percussion normal bowel sounds no rebound or guarding or rigidity.) and normal bowel sounds; Absent guarding or rebound Neurological Exam Neurological exam: Present alert and oriented X3 Medical Decision Making <ASA Rodas - Last Filed: 02/06/24 23:50> Medical Records Medical records reviewed: Yes I reviewed the patient's medical records. Zoran Inquiry Pt receiving controlled substance: No Vital Signs: 02/06/24 21:47 02/06/24 23:04 02/07/24 00:09 Temperature 98.2 F 98.0 F Temperature Source Oral Oral Pulse Rate 70 71 Pulse Rate [Right] 73 Respiratory Rate 20 20 Blood Pressure 127/84 126/81 Blood Pressure [Right Arm] 174/103 H Blood Pressure Mean 98 Blood Pressure Mean [Right Arm] 126 Blood Pressure Source Automatic Cuff Blood Pressure Position Sitting 02 Sat by Pulse Oximetry 98 99 Oxygen Delivery Method Room Air Room Air Lab Data Lab results reviewed: Yes I reviewed the patient's lab results. Lab Results 02/06/24 21:50: WBC 13.1 H, RBC 4.29, Hgb 12.3, Hct 36.9 L, MCV 86.0, MCH 28.7, MCHC 33.4, RDW 15.7, Plt Count 361, MPV 7.5, Neut % (Auto) 62.7, Lymph % (Auto) 31.6, Towns % (Auto) 3.6, Eos % (Auto) 1.3, Baso % (Auto) 0.8, Neut # (Auto) 8.2 H, Lymph # (Auto) 4.1, Towns # (Auto) 0.5, Eos # (Auto) 0.2, Baso # (Auto) 0.1, Sodium 139, Potassium 4.2, Chloride 107, Carbon Dioxide 26, Anion Gap 10.2, BUN 14, Creatinine 0.90, Estimated Creat Clear 125, Estimated GFR 74, Est GFR ( Amer) 90, Glucose 105 H, Calcium 9.5, Total Bilirubin 0.5, AST 23, ALT 18, Alkaline Phosphatase 94, Total Protein 7.9, Albumin 4.5, Globulin 3.4 H, Albumin/Globulin Ratio 1.3, Lipase 78, Serum HCG, Qual Negative 02/06/24 22:30: Urine Color Yellow, Urine Appearance Clear, Urine pH 6.0, Ur Specific [place] 1.025, Urine Protein Negative, Urine Glucose (UA) Negative, Urine Ketones Negative, Urine Blood 2+, Urine Nitrate Negative, Urine Bilirubin Negative, Urine Urobilinogen 0.2, Ur Leukocyte Esterase Negative, Urine RBC 20-50, Urine WBC 3-5, Ur Squamous Epith Cells 3-5, Urine Bacteria 1+ 02/06/24 21:50 02/06/24 21:50 Orders (Tests/Meds): ED MEDICATIONS Discontinued Medications Generic Name Dose Route Start Last Admin Trade Name Freq PRN Reason Stop Dose Admin Acetaminophen 1,000 mg 02/06/24 21:46 02/06/24 21:55 Acetaminophen 1,000mg/100ml Vial IV 02/06/24 21:47 1,000 mg ONCE ONE Administration Cefdinir 300 mg 02/07/24 09:00 Cefdinir 300mg Capsule PO 02/17/24 08:59 DAILY GIA Cefdinir 300 mg 02/06/24 23:59 02/07/24 00:03 Cefdinir 300mg Capsule PO 02/07/24 00:00 300 mg ONCE ONE Administration Lactated Ringer's 1,000 mls @ 999 mls/hr 02/06/24 21:46 02/06/24 21:56 Lactated Ringer's 1000 Ml Bag IV 02/06/24 22:46 999 mls/hr .Q1H1M ONE Administration Ceftriaxone Sodium 1 gm/ 50 mls @ 100 mls/hr 02/06/24 23:45 02/06/24 23:58 Sodium Chloride IV 02/16/24 23:44 Not Given Q24H GIA Iopamidol 75 ml 02/06/24 22:49 02/06/24 22:50 Iopamidol-370 (76%);100ml Bottle IV 02/06/24 22:50 75 ml ONCE ONE Administration Ketorolac Tromethamine 15 mg 02/06/24 21:46 02/06/24 21:56 Ketorolac 30mg/Ml Vial IV 02/06/24 21:47 15 mg ONCE ONE Administration Ondansetron HCl 4 mg 02/06/24 21:46 02/06/24 21:56 Ondansetron 4mg/2ml Vial IV 02/06/24 21:47 4 mg ONCE ONE Administration Sodium Chloride 10 ml 02/06/24 22:49 02/06/24 22:50 Sodium Chloride 0.9% 10ml Syr (Rad Only) IV 03/07/24 22:48 10 ml NEEDED PRN Administration Maintain IV Site Tamsulosin HCl 0.4 mg 02/06/24 23:56 02/07/24 00:03 Tamsulosin 0.4mg Capsule PO 02/06/24 23:57 0.4 mg ONCE ONE Administration ORDERS Category Date Time Status CT abdomen pelvis w con Stat Cat Scan 02/06/24 21:46 Completed CBC w/Auto Diff [Complete Blood Count Auto Diff] Stat Lab 02/06/24 21:50 Completed CMP [Comprehensive Metabolic Panel] Stat Lab 02/06/24 21:50 Completed HCG Qualitative, Serum Stat Lab 02/06/24 21:50 Completed Lipase Stat Lab 02/06/24 21:50 Completed UA [Urinalysis and Microscopic] Stat Lab 02/06/24 22:30 Completed Medical Decision Narrative: In summary patient is a 28-year-old female who presents to the emergency department for evaluation of left flank and abdominal pain. Patient is hemodynamically stable upon arrival, afebrile. Physical exam is remarkable for tenderness to palpation in the left mid quadrant along with left CVA tenderness to percussion that rebound or guarding or rigidity.. Differential diagnosis includes kidney stone versus pyelonephritis versus UTI versus constipation versus ulcer disease etc. Initial workup will be conducted with hematologic labs urinalysis CT scan abdomen pelvis. Initial interventions include crystalloid bolus Toradol Tylenol. Initial workup reviewed by me shows a slight elevation in her white count and hematuria pyuria and 1+ bacteria in her urine and my informal interpretation of CT scan abdomen pelvis shows a very large proximal possibly partially obstructing stone along with a very distal UVJ stone that may or may not be in the bladder prior to radiology read. Upon repeat evaluation patient did report improvement with initial intervention. Given this I have contacted the [facility] to consult with urology if available at patient request. Was able to have an interactive discussion with Dr. Man about patient management. Patient is hemodynamic stable and her symptoms are under control and per patient request if she were able she would much rather follow-up in the office tomorrow which is acceptable to Dr. Man as well. Thus patient will be given first dose of antibiotic here and prescription for pain medication nausea medication antibiotic and alpha-rhys sent to her pharmacy. She is to follow-up with Dr. Mcdaniel at 10 AM and is [employer] office. Patient verbalized understanding and agreement. She was given strict return precautions. <Buster Vasquez MD - Last Filed: 02/07/24 00:31> Zoran Inquiry Pt receiving controlled substance: Yes Zoran was queried for this patient: Yes Reference #:: [id number] Risks and benefits of using a controlled substance: were discussed with pt by me Vital Signs: 02/06/24 21:47 02/06/24 23:04 02/07/24 00:09 Temperature 98.2 F 98.0 F Temperature Source Oral Oral Pulse Rate 70 71 Pulse Rate [Right] 73 Respiratory Rate 20 20 Blood Pressure 127/84 126/81 Blood Pressure [Right Arm] 174/103 H Blood Pressure Mean 98 Blood Pressure Mean [Right Arm] 126 Blood Pressure Source Automatic Cuff Blood Pressure Position Sitting 02 Sat by Pulse Oximetry 98 99 Oxygen Delivery Method Room Air Room Air Lab Data Lab Results 02/06/24 21:50: WBC 13.1 H, RBC 4.29, Hgb 12.3, Hct 36.9 L, MCV 86.0, MCH 28.7, MCHC 33.4, RDW 15.7, Plt Count 361, MPV 7.5, Neut % (Auto) 62.7, Lymph % (Auto) 31.6, Towns % (Auto) 3.6, Eos % (Auto) 1.3, Baso % (Auto) 0.8, Neut # (Auto) 8.2 H, Lymph # (Auto) 4.1, Towns # (Auto) 0.5, Eos # (Auto) 0.2, Baso # (Auto) 0.1, Sodium 139, Potassium 4.2, Chloride 107, Carbon Dioxide 26, Anion Gap 10.2, BUN 14, Creatinine 0.90, Estimated Creat Clear 125, Estimated GFR 74, Est GFR ( Amer) 90, Glucose 105 H, Calcium 9.5, Total Bilirubin 0.5, AST 23, ALT 18, Alkaline Phosphatase 94, Total Protein 7.9, Albumin 4.5, Globulin 3.4 H, Albumin/Globulin Ratio 1.3, Lipase 78, Serum HCG, Qual Negative 02/06/24 22:30: Urine Color Yellow, Urine Appearance Clear, Urine pH 6.0, Ur Specific [place] 1.025, Urine Protein Negative, Urine Glucose (UA) Negative, Urine Ketones Negative, Urine Blood 2+, Urine Nitrate Negative, Urine Bilirubin Negative, Urine Urobilinogen 0.2, Ur Leukocyte Esterase Negative, Urine RBC 20-50, Urine WBC 3-5, Ur Squamous Epith Cells 3-5, Urine Bacteria 1+ Orders (Tests/Meds): ED MEDICATIONS Discontinued Medications Generic Name Dose Route Start Last Admin Trade Name Freq PRN Reason Stop Dose Admin Acetaminophen 1,000 mg 02/06/24 21:46 02/06/24 21:55 Acetaminophen 1,000mg/100ml Vial IV 02/06/24 21:47 1,000 mg ONCE ONE Administration Cefdinir 300 mg 02/07/24 09:00 Cefdinir 300mg Capsule PO 02/17/24 08:59 DAILY GIA Cefdinir 300 mg 02/06/24 23:59 02/07/24 00:03 Cefdinir 300mg Capsule PO 02/07/24 00:00 300 mg ONCE ONE Administration Lactated Ringer's 1,000 mls @ 999 mls/hr 02/06/24 21:46 02/06/24 21:56 Lactated Ringer's 1000 Ml Bag IV 02/06/24 22:46 999 mls/hr .Q1H1M ONE Administration Ceftriaxone Sodium 1 gm/ 50 mls @ 100 mls/hr 02/06/24 23:45 02/06/24 23:58 Sodium Chloride IV 02/16/24 23:44 Not Given Q24H GIA Iopamidol 75 ml 02/06/24 22:49 02/06/24 22:50 Iopamidol-370 (76%);100ml Bottle IV 02/06/24 22:50 75 ml ONCE ONE Administration Ketorolac Tromethamine 15 mg 02/06/24 21:46 02/06/24 21:56 Ketorolac 30mg/Ml Vial IV 02/06/24 21:47 15 mg ONCE ONE Administration Ondansetron HCl 4 mg 02/06/24 21:46 02/06/24 21:56 Ondansetron 4mg/2ml Vial IV 02/06/24 21:47 4 mg ONCE ONE Administration Sodium Chloride 10 ml 02/06/24 22:49 02/06/24 22:50 Sodium Chloride 0.9% 10ml Syr (Rad Only) IV 03/07/24 22:48 10 ml NEEDED PRN Administration Maintain IV Site Tamsulosin HCl 0.4 mg 02/06/24 23:56 02/07/24 00:03 Tamsulosin 0.4mg Capsule PO 02/06/24 23:57 0.4 mg ONCE ONE Administration ORDERS Category Date Time Status CT abdomen pelvis w con Stat Cat Scan 02/06/24 21:46 Completed CBC w/Auto Diff [Complete Blood Count Auto Diff] Stat Lab 02/06/24 21:50 Completed CMP [Comprehensive Metabolic Panel] Stat Lab 02/06/24 21:50 Completed HCG Qualitative, Serum Stat Lab 02/06/24 21:50 Completed Lipase Stat Lab 02/06/24 21:50 Completed UA [Urinalysis and Microscopic] Stat Lab 02/06/24 22:30 Completed Medical Decision Narrative: In summary patient is a 28-year-old female who presents to the emergency department for evaluation of left flank and abdominal pain. Patient is hemodynamically stable upon arrival, afebrile. Physical exam is remarkable for tenderness to palpation in the left mid quadrant along with left CVA tenderness to percussion that rebound or guarding or rigidity.. Differential diagnosis includes kidney stone versus pyelonephritis versus UTI versus constipation versus ulcer disease etc. Initial workup will be conducted with hematologic labs urinalysis CT scan abdomen pelvis. Initial interventions include crystalloid bolus Toradol Tylenol. Initial workup reviewed by me shows a slight elevation in her white count and hematuria pyuria and 1+ bacteria in her urine and my informal interpretation of CT scan abdomen pelvis shows a very large proximal possibly partially obstructing stone along with a very distal UVJ stone that may or may not be in the bladder prior to radiology read. Upon repeat evaluation patient did report improvement with initial intervention. Given this I have contacted the [facility] [place] to consult with urology if available at patient request. Was able to have an interactive discussion with Dr. Man about patient management. Patient is hemodynamic stable and her symptoms are under control and per patient request if she were able she would much rather follow-up in the office tomorrow which is acceptable to Dr. Man as well. Thus patient will be given first dose of antibiotic here and prescription for pain medication nausea medication antibiotic and alpha-rhys sent to her pharmacy. She is to follow-up with Dr. Mcdaniel at 10 AM and is [employer] office. Patient verbalized understanding and agreement. She was given strict return precautions. Vasquez: I assessed this patient prior to discharge. I agree with the assessment and plan from the initial providers after personally reviewing labs and imaging. Consult to urology and discussion with Dr. Mcdaniel has already happened and patient is going to follow-up at 10 AM. I prescribed cefdinir, Zofran, oxycodone, tamsulosin for outpatient management. Patient was given instructions on symptomatic management, follow up instructions, and return precautions for the emergency department. Patient indicated understanding and was discharged in stable condition. Critical Care <SAA Rodas - Last Filed: 02/06/24 23:50> Critical Care Time Critical Care Time: No
--- NOTE | 2024-02-06 21:46 | CT_ITS ---
PROCEDURE INFORMATION: Exam: CT Abdomen And Pelvis With Contrast Exam date and time: 02/06/2024 10:46 PM Age: 28 years old Clinical indication: Abdominal pain; Flank; Left; Additional info: Left flank pain left lower abdominal pain TECHNIQUE: Imaging protocol: Computed tomography of the abdomen and pelvis with contrast. Radiation optimization: All CT scans at this facility use at least one of these dose optimization techniques: automated exposure control; mA and/or kV adjustment per patient size (includes targeted exams where dose is matched to clinical indication); or iterative reconstruction. Contrast material: ISOVUE; Contrast volume: 75 ml; Contrast route: IV; COMPARISON: CT ABDOMEN PELVIS W CON 02/02/2019 2:40 PM FINDINGS: Lungs: No acute finding. Liver: There is a stable a hepatic cyst. Gallbladder and biliary ducts: Normal. No calcified stones. No ductal dilation. Pancreas: Normal. No ductal dilation. Spleen: Normal. No splenomegaly. Adrenal glands: Normal. No mass. Kidneys and ureters: There is a 4 mm left UVJ calculus causing mild hydroureteronephrosis. There is a tiny left intrarenal calculus in the upper pole collecting system and a 9 mm calculus in the left renal pelvis. The right kidney and ureter are normal. Stomach and bowel: Unremarkable. No obstruction. No mucosal thickening. Appendix: No evidence of appendicitis. Intraperitoneal space: Unremarkable. No free air. No significant fluid collection. Vasculature: Unremarkable. No abdominal aortic aneurysm. Lymph nodes: Unremarkable. No enlarged lymph nodes. Urinary bladder: Unremarkable as visualized. Reproductive: Unremarkable as visualized. Bones/joints: Unremarkable. No acute fracture. Soft tissues: There are small fat containing bilateral inguinal hernias. IMPRESSION: 4 mm obstructing left UVJ calculus causing mild hydroureteronephrosis. Other nonobstructing left intrarenal calculi are noted.
[2024-02-06 21:47] VITALS: BP 174/103; PULSE 73; RESP 20; TEMP 36.8; O2SAT 98; BMI 35.9
[2024-02-06] MEDS: ACETAMINOPHEN 1,000MG/100ML VIAL 1000 MG IV (21:55)
[2024-02-06] MEDS: KETOROLAC 30MG/ML VIAL 15 MG IV (21:56)
[2024-02-06] MEDS: LACTATED RINGERS 1000ML 1,000 ML 999 ML IV (21:56)
[2024-02-06] MEDS: ONDANSETRON 4MG/2ML VIAL 4 MG IV (21:56)
[2024-02-06 22:03] LABS: Basophils # 0.1 K/mm3 (0-0.2); Basophils % 0.8 % (0.1-2.0); Eosinophils # 0.2 K/mm3 (0.0-0.4); Eosinophils % 1.3 % (0.1-12.0); Hematocrit 36.9 % (37.0-47.0); Hemoglobin 12.3 g/dL (12.2-16.2); Lymphocytes # 4.1 K/mm3 (0.7-4.5); Lymphocytes % 31.6 % (10-50); Mean Corpuscular HGB Conc 33.4 g/dL (31.8-35.4); Mean Corpuscular Hemoglobin 28.7 pg (27.0-31.2); Mean Platelet Volume 7.5 fl (7.4-10.4); Monocytes # 0.5 K/mm3 (0.1-1.0); Monocytes % 3.6 % (1.7-9.3); Neutrophils # 8.2 K/mm3 (1.8-7.8); Neutrophils % 62.7 % (37.0-80.0); Platelet Count 361 K/mm3 (142-424); Red Blood Count 4.29 M/mm3 (4.20-5.40); Red Cell Distribution Width 15.7 % (11.5-17.5); White Blood Count 13.1 K/mm3 (4.8-10.8)
[2024-02-06 22:08] LABS: Albumin Level 4.5 g/dl (3.5-5.0); Chloride 107 mmol/L (98-107); Sodium 139 mmol/L (136-145)
[2024-02-06 22:09] LABS: Potassium 4.2 mmoL/L (3.5-5.1)
[2024-02-06 22:10] LABS: HCG Qualitative, Serum Negative (Negative)
[2024-02-06 22:11] LABS: Alanine Aminotransferase 18 U/L (12-78); Alkaline Phosphatase 94 U/L (38-126); Anion Gap 10.2 mEq/L (5-15); Aspartate Amino Transferase 23 U/L (14-36); Bilirubin,Total 0.5 mg/dl (0.2-1.3); Blood Urea Nitrogen 14 mg/dl (7-17); Carbon Dioxide 26 mmol/L (22.0-30.0); Creatinine Clearance Estimated 125 mL/min (50-200); Estimated Glomerular Filt Rate 74 ml/min (>60); GFR (African American) 90 ML/MIN (>60)
[2024-02-06 22:12] LABS: Albumin/Globulin Ratio 1.3 (1.1-1.8); Calcium 9.5 mg/dl (8.4-10.2); Globulin 3.4 g/dL (1.3-3.2); Glucose 105 mg/dl (74-100); Lipase 78 U/L (23-300); Total Protein,Serum 7.9 g/dl (6.3-8.2)
[2024-02-06 22:32] LABS: Microscopic, Urine URINE MICROSCOPIC (MICROSCOPIC)
[2024-02-06 22:34] LABS: Appearance,Urine CLEAR (Clear); Bilirubin,Urine Negative (Negative); Blood, Urine 2+ (Negative); Color,Urine YELLOW (Yellow); Glucose,Urine (UA) Negative (Negative); Ketones,Urine Negative (Negative); Leukocyte Esterase,Urine Negative (Negative); Nitrate,Urine Negative (Negative); Protein,Urine Negative (Negative); Specific Gravity, Urine 1.025 (1.005-1.030); Urobilinogen,Urine 0.2 EU/dl (0.2)
[2024-02-06] MEDS: IOPAMIDOL-370 (76%);100ML BOTTLE 75 ML IV (22:50)
[2024-02-06] MEDS: SODIUM CHLORIDE 0.9% 10ML SYR (RAD ONLY) 10 ML IV (22:50)
[2024-02-06 22:55] LABS: RBC,Urine 20-50 #/hpf (0-3)
[2024-02-06 22:56] LABS: Bacteria,Urine 1+ /lpf
[2024-02-06 23:04] VITALS: BP 127/84; PULSE 70; O2SAT 99
--- NOTE | 2024-02-06 23:12 | PC.NURSE ---
2300 Pt. states she feels a lot better at this time.
--- NOTE | 2024-02-06 23:19 | PC.NURSE ---
call to [facility] transfer center re: transport to [place] awaiting return call
--- NOTE | 2024-02-06 23:36 | PC.NURSE ---
rounded on patient, updated that we are still waiting to hear back from [facility]
--- NOTE | 2024-02-06 23:44 | PC.NURSE ---
Mid level on phone with Dr. Mcdaniel at this time
[2024-02-07] MEDS: CEFDINIR 300MG CAPSULE 300 MG PO (00:03)
[2024-02-07] MEDS: TAMSULOSIN 0.4MG CAPSULE 0.4 MG PO (00:03)
[2024-02-07 00:09] VITALS: BP 126/81; PULSE 71; RESP 20; TEMP 36.7; O2SAT 98
== END 2024-02-07 00:12 | disposition home or self-care (01) ==
PROVIDERS: Physician Assistant; Emergency Provider Emergency Medicine; PCP Nurse Practitioner Family
DX: N13.0 Hydronephrosis with ureteropelvic junction obstruction (principal); R10.32 Left lower quadrant pain; M54.59 Other low back pain
CPT/HCPCS: 74177; 80053; 81001; 83690; 84703; 85025; 96361; 96374; 96375; 99284; J0131; J1885; J2405; J7120; Q9967